=== PATIENT | female | born 1960 | race Caucasian/White ===

== ENCOUNTER 2016-05-23 11:16 | Emergency (ER) | payer MEDICAID ==
[~2016-05-23] VITALS: Ht 157.5 cm; Wt 50.0 kg
[~2016-05-23 11:16] MED LIST: AZIT250T PO; HYDR25TA11 PO; PRED20TA PO; SERT50TA PO; TRAZ150T68 PO; TRAZ50TA18 PO
[2016-05-23] MEDS ORDERED: SODIUM CHLORIDE 0.9% 1,000ML IVBOLUS ONE (12:00)
[2016-05-23 12:34] LABS: HEMOGLOBIN 15.4 g/dL (11.7-16.4)
[2016-05-23 12:46] LABS: BLOOD UREA NITROGEN 11 mg/dL (7-18)
[2016-05-23] MEDS ORDERED: POTASSIUM CHLORIDE 20 MEQ TAB.ER.PRT PO ONE (13:30)
[2016-05-23] MEDS ORDERED: POTASSIUM CHLORIDE 40 MEQ in SODIUM CHLORIDE 0.9% 500 ML IV ONE (13:30)
[2016-05-23] MEDS ORDERED: POTASSIUM CHLORIDE 20 MEQ TAB.ER.PRT ONE (13:47)
[2016-05-23 15:52] LABS: BLOOD UREA NITROGEN 11 mg/dL (7-18)
[2016-05-23 15:57] VITALS: BP 107/59
[2016-05-23] MEDS ORDERED: LORazepam 1MG TABLET PO ONE (16:30)
[2016-05-23] MEDS ORDERED: LORazepam 1MG TABLET ONE (16:33)
== END 2016-05-23 16:50 | disposition home or self-care (01) ==
LOC: ED 16:36
DX: F10.129 Alcohol abuse with intoxication, unspecified (principal); E16.2 Hypoglycemia, unspecified; E86.0 Dehydration; F41.1 Generalized anxiety disorder; I10 Essential (primary) hypertension; F32.9 Major depressive disorder, single episode, unspecified; F12.10 Cannabis abuse, uncomplicated; Y90.9 Presence of alcohol in blood, level not specified
CPT/HCPCS: 36415; 80048; 82040; 82962; 85025; 96361; 96365; 96366; 99285; J3480; J7030; J7040

== ENCOUNTER 2016-12-18 06:42 | Emergency (ER) | payer MEDICAID, OTHER ==
[~2016-12-18] VITALS: Ht 157.5 cm; Wt 50.8 kg
[~2016-12-18 06:42] MED LIST changes: +TRAZ150T62 PO; -TRAZ150T68 PO
[2016-12-18 06:44] VITALS: BP 118/34
[2016-12-18] MEDS ORDERED: KETOROLAC 30 MG/1 ML IM ONE (07:00)
[2016-12-18] MEDS ORDERED: METHOCARBAMOL 750 MG TABLET PO ONE (07:00)
[2016-12-18] MEDS ORDERED: ONDANSETRON ODT 4 MG PO ONE (07:00)
[2016-12-18] MEDS ORDERED: METHOCARBAMOL 750 MG TABLET ONE (07:08)
[2016-12-18] MEDS ORDERED: ONDANSETRON ODT 4 MG ONE (07:08)
[2016-12-18] MEDS ORDERED: KETOROLAC 30 MG/1 ML ONE (07:08)
== END 2016-12-18 07:47 | disposition home or self-care (01) ==
LOC: ED 07:30
DX: M54.16 Radiculopathy, lumbar region (principal); M54.12 Radiculopathy, cervical region
CPT/HCPCS: 72050; 72110; 96372; 99284; J1885; Q0162

== ENCOUNTER 2017-06-04 15:21 | Emergency (ER) | payer MEDICAID, OTHER ==
[~2017-06-04] VITALS: Ht 157.5 cm; Wt 51.5 kg
[2017-06-04 15:22] VITALS: BP 102/66
== END 2017-06-04 16:12 | disposition home or self-care (01) ==
LOC: ED 16:00
DX: K02.9 Dental caries, unspecified (principal); K08.89 Other specified disorders of teeth and supporting structures; F17.210 Nicotine dependence, cigarettes, uncomplicated; I10 Essential (primary) hypertension
CPT/HCPCS: 99283

== ENCOUNTER 2018-01-19 12:48 | Emergency (ER) | payer MEDICAID ==
[~2018-01-19] VITALS: Ht 157.5 cm; Wt 48.0 kg
[~2018-01-19 12:48] MED LIST changes: +TRAZ-136 PO; -TRAZ50TA18 PO
[2018-01-19 13:11] VITALS: BP 147/78
[2018-01-19 13:44] LABS: BASOPHILS # (AUTO) 0.09 x10^3/uL (0-0.1); BASOPHILS % (AUTO) 1 % (0-1); EOSINOPHILS # (AUTO) 0.09 x10^3/uL (0-0.4); EOSINOPHILS % (AUTO) 1 % (1-7); LYMPHOCYTES # (AUTO) 2.18 x10^3/uL (1-3.4); LYMPHOCYTES % (AUTO) 21 % (22-44); MD NO; MEAN CORPUSCULAR HEMOGLOBIN 31.4 pg (27.0-34.8); MEAN CORPUSCULAR HGB CONC 33.2 g/dL (32.4-35.8); MEAN CORPUSCULAR VOLUME 94.7 fL (80-100); MEAN PLATELET VOLUME 7.5 fL (7.4-10.4); MONOCYTES % (AUTO) 4 % (2-9); NEUTROPHILS # (AUTO) 7.59 x10^3/uL (1.8-6.8); NEUTROPHILS % (AUTO) 73 % (42-75); PLATELET COUNT 393 x10^3/uL (130-400); RED BLOOD COUNT 4.56 x10^6/uL (3.82-5.3); RED CELL DISTRIBUTION WIDTH 13.7 % (9.6-15.2)
[2018-01-19 13:57] LABS: ALANINE AMINOTRANSFERASE 27 U/L (12-78); ANION GAP 10 mmol/L (5-15); CALCIUM 8.5 mg/dL (8.5-10.1); CHLORIDE 102 mmol/L (98-107); SALICYLATE LEVEL 4.1 mg/dL (2.8-20.0)
[2018-01-19 13:59] LABS: CREATININE 0.95 mg/dL (0.55-1.02)
[2018-01-19 14:00] LABS: ALKALINE PHOSPHATASE 117 U/L (45-117); BILIRUBIN,TOTAL 0.7 mg/dL (0.2-1.0); TOTAL PROTEIN 7.6 g/dL (6.4-8.2)
[2018-01-19 14:01] LABS: ACETAMINOPHEN < 2 mcg/mL (10-30)
[2018-01-19 14:11] LABS: AMPHETAMINE SCREEN, URINE Positive (Negative); BARBITURATE SCREEN, URINE Negative (Negative); BENZODIAZEPINE SCREEN, URINE Negative (Negative); CANNABINOID SCREEN, URINE Positive (Negative); COCAINE SCREEN, URINE Negative (Negative); METHADONE SCREEN, URINE Negative (Negative); OPIATE SCREEN, URINE Negative (Negative)
== END 2018-01-19 15:36 | disposition left against medical advice (07) ==
LOC: ED 15:15
DX: F41.9 Anxiety disorder, unspecified (principal); F12.10 Cannabis abuse, uncomplicated
CPT/HCPCS: 36415; 80053; 80307; 80329; 85025; 93005; 99285; G0480

== ENCOUNTER 2018-01-23 15:06 | Observation (INO) | payer MEDICAID ==
[~2018-01-23] VITALS: Ht 157.5 cm; Wt 46.0 kg
[2018-01-23 15:36] LABS: BASOPHILS # (AUTO) 0.06 x10^3/uL (0-0.1); BASOPHILS % (AUTO) 1 % (0-1); EOSINOPHILS # (AUTO) 0.04 x10^3/uL (0-0.4); EOSINOPHILS % (AUTO) 0 % (1-7); LYMPHOCYTES % (AUTO) 14 % (22-44); MD NO; MEAN CORPUSCULAR HEMOGLOBIN 31.3 pg (27.0-34.8); MEAN CORPUSCULAR HGB CONC 33.2 g/dL (32.4-35.8); MEAN CORPUSCULAR VOLUME 94.3 fL (80-100); MEAN PLATELET VOLUME 7.9 fL (7.4-10.4); MONOCYTES # (AUTO) 0.38 x10^3/uL (0.2-0.8); MONOCYTES % (AUTO) 4 % (2-9); NEUTROPHILS # (AUTO) 7.96 x10^3/uL (1.8-6.8); NEUTROPHILS % (AUTO) 81 % (42-75); PLATELET COUNT 389 x10^3/uL (130-400); RED BLOOD COUNT 4.28 x10^6/uL (3.82-5.3); RED CELL DISTRIBUTION WIDTH 13.9 % (9.6-15.2)
[2018-01-23 15:46] LABS: ANION GAP 12 mmol/L (5-15); CALCIUM 8.6 mg/dL (8.5-10.1); CHLORIDE 102 mmol/L (98-107); CREATININE 0.97 mg/dL (0.55-1.02)
[2018-01-23] MEDS ORDERED: SODIUM CHLORIDE 0.9% 1,000ML IVBOLUS ONE (17:30)
[2018-01-23] MEDS ORDERED: DOCUSATE 100 MG CAPSULE PO PRN (19:00)
[2018-01-23] MEDS ORDERED: ONDANSETRON 2MG/ML, 2ML IVPush PRN (19:00)
[2018-01-23] MEDS ORDERED: hydrALAzine 20 MG/ML, 1ML IVPush PRN (19:00)
[2018-01-23] MEDS: D5%-0.9% NACL 1,000 ML IV SCH (19:41)
[2018-01-23] MEDS: POTASSIUM CHLORIDE 20 MEQ TAB.ER.PRT PO SCH (19:56)
[2018-01-23] MEDS: ENOXAPARIN 40 MG/0.4 ML SQ SCH (19:56)
[2018-01-23] MEDS: GABAPENTIN 300 MG CAPSULE PO PRN (19:56)
[2018-01-23] MEDS: GUAIFENESIN/COD200MG-20MG/10ML LIQUID PO PRN (19:56)
[2018-01-23 20:00] LABS: MICROSCOPIC INDICATED
[2018-01-23] MEDS: NICOTINE 7 MG/24 HR PATCH.TD24 TD SCH (20:01)
[2018-01-23 20:06] LABS: CULTURE INDICATED? YES
[2018-01-24] VITALS (7 sets, daily range): BP systolic 92–111; BP diastolic 57–73
[2018-01-24] MEDS: POTASSIUM CHLORIDE 20 MEQ TAB.ER.PRT PO SCH (00:04)
[2018-01-24] MEDS: D5%-0.9% NACL 1,000 ML IV SCH (03:33)
[2018-01-24 05:45] LABS: BASOPHILS # (AUTO) 0.05 x10^3/uL (0-0.1); BASOPHILS % (AUTO) 1 % (0-1); EOSINOPHILS # (AUTO) 0.19 x10^3/uL (0-0.4); EOSINOPHILS % (AUTO) 2 % (1-7); LYMPHOCYTES % (AUTO) 43 % (22-44); MD NO; MEAN CORPUSCULAR HEMOGLOBIN 31.1 pg (27.0-34.8); MEAN CORPUSCULAR HGB CONC 32.7 g/dL (32.4-35.8); MEAN CORPUSCULAR VOLUME 95.2 fL (80-100); MEAN PLATELET VOLUME 8.3 fL (7.4-10.4); MONOCYTES # (AUTO) 0.45 x10^3/uL (0.2-0.8); MONOCYTES % (AUTO) 5 % (2-9); NEUTROPHILS # (AUTO) 4.45 x10^3/uL (1.8-6.8); NEUTROPHILS % (AUTO) 50 % (42-75); PLATELET COUNT 366 x10^3/uL (130-400); RED BLOOD COUNT 3.83 x10^6/uL (3.82-5.3); RED CELL DISTRIBUTION WIDTH 13.8 % (9.6-15.2)
[2018-01-24 05:51] LABS: CHLORIDE 116 mmol/L (98-107)
[2018-01-24 05:55] LABS: ANION GAP 5 mmol/L (5-15); CREATININE 0.67 mg/dL (0.55-1.02)
[2018-01-24] MEDS ORDERED: MAGNESIUM SULFATE 1 GM in SODIUM CHLORIDE 0.9% 50 ML IV ONE (06:30)
[2018-01-24] MEDS: SERTRALINE 100MG TABLET PO SCH (08:14)
[2018-01-24] MEDS: GABAPENTIN 300 MG CAPSULE PO PRN ×2 (08:33→20:52)
[2018-01-24 17:36] LABS: AMPHETAMINE SCREEN, URINE Negative (Negative); BARBITURATE SCREEN, URINE Negative (Negative); BENZODIAZEPINE SCREEN, URINE Negative (Negative); CANNABINOID SCREEN, URINE Positive (Negative); COCAINE SCREEN, URINE Negative (Negative); METHADONE SCREEN, URINE Negative (Negative); OPIATE SCREEN, URINE Positive (Negative)
[2018-01-24] MEDS: NICOTINE 7 MG/24 HR PATCH.TD24 TD SCH (19:11)
[2018-01-24] MEDS: ENOXAPARIN 40 MG/0.4 ML SQ SCH (20:51)
[2018-01-24] MEDS: GUAIFENESIN/COD200MG-20MG/10ML LIQUID PO PRN (20:52)
[2018-01-25 00:13] VITALS: BP 118/73
[2018-01-25 04:45] LABS: ALBUMIN 3.3 g/dL (3.4-5.0); ANION GAP 3 mmol/L (5-15); CALCIUM 8.8 mg/dL (8.5-10.1); CHLORIDE 111 mmol/L (98-107); CREATININE 0.84 mg/dL (0.55-1.02)
[2018-01-25 07:21] VITALS: BP 96/64
[2018-01-25] MEDS: SERTRALINE 100MG TABLET PO SCH (09:19)
[2018-01-25 13:16] VITALS: BP 109/71
== END 2018-01-25 15:04 | disposition left against medical advice (07) ==
LOC: ED 16:28 → INTOOBSV 18:04 → EDIP 18:04 → 3NW 18:49
PROVIDERS: ADMIT Internal Medicine; ATTEND Internal Medicine
DX: I95.1 Orthostatic hypotension (principal); R42 Dizziness and giddiness; E87.6 Hypokalemia; I10 Essential (primary) hypertension; R53.81 Other malaise; F32.9 Major depressive disorder, single episode, unspecified; E44.0 Moderate protein-calorie malnutrition; E86.9 Volume depletion, unspecified; F10.10 Alcohol abuse, uncomplicated; F17.210 Nicotine dependence, cigarettes, uncomplicated; F19.10 Other psychoactive substance abuse, uncomplicated; F41.9 Anxiety disorder, unspecified; Z79.899 Other long term (current) drug therapy
CPT/HCPCS: 36415; 70450; 72050; 80048; 80307; 81001; 82040; 83735; 84100; 85025; 87086; 93005; 96361; 96365; 96372; 97116; 97161; 97166; 97530; 99285; G0378; J1650; J3475; J7030; J7042

== ENCOUNTER 2018-04-15 18:31 | Emergency (ER) | payer MEDICAID ==
[~2018-04-15] VITALS: Ht 157.5 cm; Wt 47.0 kg
[~2018-04-15 18:31] MED LIST changes: -TRAZ-136 PO; +TRAZ50TA66 PO
--- NOTE | 2018-04-15 19:07 | NUR ---
PT TO ED FOR PAINFUL URINATION. YVROSE MOONEY TO MONITORS. VSS. ASSESSMENT COMPLETE. AWAITNG URINE SAMPLE. PT STATES SHE WILL TRY SOON. NO OHTER NEEDS AT THIS TIME.
[2018-04-15 19:33] LABS: MICROSCOPIC NOT IND
[2018-04-15 19:35] LABS: CULTURE INDICATED? NO
[2018-04-15 19:45] VITALS: BP 101/55
--- NOTE | 2018-04-15 19:46 | NUR ---
LUPE WRAP APPLIED TO LEFT KNEE. EDUCATION PROVIDED TO PT ON LUPE WRAP. VSS. NO NEEDS AT THIS TIME. AWAITNG DISPO.
== END 2018-04-15 20:01 | disposition home or self-care (01) ==
LOC: ED 18:59
DX: S83.412A Sprain of medial collateral ligament of left knee, initial encounter (principal); I10 Essential (primary) hypertension; F17.200 Nicotine dependence, unspecified, uncomplicated; X58.XXXA Exposure to other specified factors, initial encounter; Y93.89 Activity, other specified; Y92.89 Other specified places as the place of occurrence of the external cause; Y99.8 Other external cause status
CPT/HCPCS: 81003; 93005; 99284

== ENCOUNTER 2018-09-14 16:27 | Emergency (ER) | payer MEDICAID ==
[~2018-09-14] VITALS: Ht 157.5 cm; Wt 50.9 kg
[2018-09-14 16:37] VITALS: BP 97/52
[2018-09-14] MEDS ORDERED: BUPIVACAINE 0.25% ONE (17:16)
--- NOTE | 2018-09-14 17:17 | NUR ---
[place] ordered from pharmacy
[2018-09-14] MEDS ORDERED: BUPIVACAINE 0.25% INFIL ONE (17:30)
[2018-09-14] MEDS ORDERED: TRIAMCINOLONE ACETONIDE 40 MG/ML, 1ML IM ONE (17:30)
--- NOTE | 2018-09-14 17:39 | NUR ---
at bedside for injection
== END 2018-09-14 17:57 | disposition home or self-care (01) ==
LOC: ED 17:50
DX: M70.42 Prepatellar bursitis, left knee (principal); F17.200 Nicotine dependence, unspecified, uncomplicated; I10 Essential (primary) hypertension
CPT/HCPCS: 99283

== ENCOUNTER 2018-10-02 15:31 | Emergency (ER) | payer MEDICAID ==
[~2018-10-02] VITALS: Ht 157.5 cm; Wt 50.8 kg
[2018-10-02 15:45] VITALS: BP 108/71
== END 2018-10-02 16:38 | disposition left against medical advice (07) ==
LOC: ED 16:32
DX: R56.9 Unspecified convulsions (principal); Z53.21 Procedure and treatment not carried out due to patient leaving prior to being seen by health care provider

== ENCOUNTER 2018-10-02 17:54 | Emergency (ER) | payer MEDICAID ==
[~2018-10-02] VITALS: Ht 157.5 cm; Wt 50.0 kg
[~2018-10-02 17:54] MED LIST changes: +HYDR-826 PO; -HYDR25TA11 PO
[2018-10-02 18:04] VITALS: BP 105/66
--- NOTE | 2018-10-02 18:41 | NUR ---
PT/ALL BELONGINGS GONE FROM ROOM.
[2018-11-20] MEDS ORDERED: HYDR50TA13 PO (12:53)
[2018-11-20] MEDS ORDERED: SERT100T PO (12:53)
== END 2018-10-02 18:48 | disposition left against medical advice (07) ==
LOC: ED 18:42
DX: F10.129 Alcohol abuse with intoxication, unspecified (principal); Z53.21 Procedure and treatment not carried out due to patient leaving prior to being seen by health care provider

== ENCOUNTER 2019-08-13 15:01 | Emergency (ER) | payer MEDICAID ==
[~2019-08-13] VITALS: Ht 157.5 cm; Wt 51.8 kg
[~2019-08-13 15:01] MED LIST changes: +HYDR50TA99 PO; +SERT100T PO
[2019-08-13] MEDS ORDERED: METHOCARBAMOL 750 MG TABLET PO ONE (15:30)
[2019-08-13] MEDS ORDERED: KETOROLAC 30 MG/1 ML IM ONE (15:30)
[2019-08-13] MEDS ORDERED: METHOCARBAMOL 750 MG TABLET ONE (15:47)
[2019-08-13] MEDS ORDERED: KETOROLAC 30 MG/1 ML ONE (15:47)
[2019-08-13 16:52] VITALS: BP 124/54
== END 2019-08-13 16:53 | disposition home or self-care (01) ==
LOC: ED 16:20
DX: M54.12 Radiculopathy, cervical region (principal); M54.6 Pain in thoracic spine; I10 Essential (primary) hypertension
CPT/HCPCS: 72125; 96372; 99284; J1885

== ENCOUNTER → 2020-01-28 | Outpatient (CLI) | payer MEDICAID ==
[~2020-01-28] MED LIST changes: +NAPR220C62 PO; +TRAZ-175 PO
[2020-01-28 12:08] LABS: BASOPHILS % (AUTO) 1 % (0-1); EOSINOPHILS % (AUTO) 6 % (1-7); LYMPHOCYTES % (AUTO) 41 % (22-44); MEAN CORPUSCULAR HEMOGLOBIN 32.1 pg (27.0-34.8); MEAN CORPUSCULAR HGB CONC 33.2 g/dL (32.4-35.8); MEAN PLATELET VOLUME 7.4 fL (7.4-10.4); MONOCYTES % (AUTO) 5 % (2-9); NEUTROPHILS % (AUTO) 48 % (42-75); PLATELET COUNT 338 x10^3/uL (130-400); RED BLOOD COUNT 4.17 x10^6/uL (3.82-5.3); RED CELL DISTRIBUTION WIDTH 12.5 % (9.6-15.2)
[2020-01-28 12:09] LABS: MD NO
[2020-01-28 12:10] LABS: MICROSCOPIC NOT IND
[2020-01-28 12:17] LABS: INTERNATIONAL NORMALIZED RATIO 1.01 (0.93-1.1); PROTHROMBIN TIME 10.7 Seconds (9.6-11.5)
[2020-01-28 12:19] LABS: ALBUMIN 4.6 g/dL (3.4-5.0); ANION GAP 3 mmol/L (5-15); CALCIUM 9.1 mg/dL (8.5-10.1); CHLORIDE 108 mmol/L (98-107)
[2020-01-28 12:23] LABS: ALANINE AMINOTRANSFERASE 44 U/L (12-78); ALKALINE PHOSPHATASE 84 U/L (45-117); BILIRUBIN,TOTAL 0.5 mg/dL (0.2-1.0); CREATININE 0.87 mg/dL (0.55-1.02); TOTAL PROTEIN 7.2 g/dL (6.4-8.2)
== END | disposition home or self-care (01) ==
LOC: STAR 10:44
PROVIDERS: ATTEND Neurological Surgery
DX: Z01.818 Encounter for other preprocedural examination (principal); M50.30 Other cervical disc degeneration, unspecified cervical region; I51.7 Cardiomegaly; M48.04 Spinal stenosis, thoracic region
CPT/HCPCS: 36415; 71046; 80053; 81003; 85025; 85610; 85730; 93005

== ENCOUNTER → 2020-02-04 | Outpatient (CLI) | payer MEDICAID ==
[~2020-02-04] MED LIST changes: +GADOTERATE 5 MMOL/10 ML VIAL ONE
== END | disposition home or self-care (01) ==
LOC: RAD 07:29
PROVIDERS: ATTEND Registered Nurse Registered Nurse First Assistant
DX: M51.34 Other intervertebral disc degeneration, thoracic region (principal); M48.03 Spinal stenosis, cervicothoracic region; M25.78 Osteophyte, vertebrae; M46.20 Osteomyelitis of vertebra, site unspecified
CPT/HCPCS: 72157; A9575

== ENCOUNTER → 2020-03-03 | Outpatient (CLI) | payer MEDICAID ==
[~2020-03-03] MED LIST changes: -GADOTERATE 5 MMOL/10 ML VIAL ONE
[2020-03-03 14:43] LABS: BASOPHILS % (AUTO) 0 % (0-1); EOSINOPHILS % (AUTO) 3 % (1-7); LYMPHOCYTES % (AUTO) 35 % (22-44); MEAN CORPUSCULAR HEMOGLOBIN 31.9 pg (27.0-34.8); MEAN CORPUSCULAR HGB CONC 33.8 g/dL (32.4-35.8); MEAN PLATELET VOLUME 6.8 fL (7.4-10.4); MONOCYTES % (AUTO) 7 % (2-9); NEUTROPHILS % (AUTO) 55 % (42-75); PLATELET COUNT 385 x10^3/uL (130-400); RED BLOOD COUNT 4.24 x10^6/uL (3.82-5.3); RED CELL DISTRIBUTION WIDTH 12.8 % (9.6-15.2)
[2020-03-03 14:46] LABS: MICROSCOPIC INDICATED
[2020-03-03 14:50] LABS: INTERNATIONAL NORMALIZED RATIO 1.01 (0.93-1.1); PROTHROMBIN TIME 10.7 Seconds (9.6-11.5)
[2020-03-03 14:52] LABS: MD NO
[2020-03-03 14:53] LABS: CHLORIDE 104 mmol/L (98-107)
[2020-03-03 15:00] LABS: ALANINE AMINOTRANSFERASE 46 U/L (12-78); ALBUMIN 4.5 g/dL (3.4-5.0); ALKALINE PHOSPHATASE 97 U/L (45-117); ANION GAP 5 mmol/L (5-15); BILIRUBIN,TOTAL 0.5 mg/dL (0.2-1.0); CALCIUM 9.8 mg/dL (8.5-10.1); CREATININE 0.88 mg/dL (0.55-1.02); TOTAL PROTEIN 7.7 g/dL (6.4-8.2)
== END | disposition home or self-care (01) ==
LOC: STAR 13:28
PROVIDERS: ATTEND Neurological Surgery
DX: Z01.812 Encounter for preprocedural laboratory examination (principal); Z20.828 Contact with and (suspected) exposure to other viral communicable diseases; M50.30 Other cervical disc degeneration, unspecified cervical region
CPT/HCPCS: 80053; 81001; 85025; 85610; 85730; 87086; 87635

== ENCOUNTER 2020-03-08 08:43 | Emergency (ER) | payer MEDICAID ==
[~2020-03-08] VITALS: Ht 157.5 cm; Wt 45.2 kg
[2020-03-08] MEDS ORDERED: LORazepam 1MG TABLET ONE (09:15)
--- NOTE | 2020-03-08 09:23 | NUR ---
BREAK RN. PT MEDICATED FOR PAIN PER ORDERS.
[2020-03-08] MEDS ORDERED: LORazepam 1MG TABLET PO ONE (09:30)
[2020-03-08 09:48] LABS: BASOPHILS % (AUTO) 1 % (0-1); EOSINOPHILS % (AUTO) 2 % (1-7); LYMPHOCYTES % (AUTO) 31 % (22-44); MEAN CORPUSCULAR HEMOGLOBIN 31.8 pg (27.0-34.8); MEAN CORPUSCULAR HGB CONC 33.8 g/dL (32.4-35.8); MEAN PLATELET VOLUME 7.2 fL (7.4-10.4); MONOCYTES % (AUTO) 6 % (2-9); NEUTROPHILS % (AUTO) 61 % (42-75); PLATELET COUNT 383 x10^3/uL (130-400); RED BLOOD COUNT 4.21 x10^6/uL (3.82-5.3); RED CELL DISTRIBUTION WIDTH 12.6 % (9.6-15.2)
[2020-03-08 09:51] LABS: MD NO
[2020-03-08 09:55] LABS: ALBUMIN 3.9 g/dL (3.4-5.0); ANION GAP 4 mmol/L (5-15); CALCIUM 9.1 mg/dL (8.5-10.1); CHLORIDE 107 mmol/L (98-107)
[2020-03-08 09:59] LABS: ALANINE AMINOTRANSFERASE 32 U/L (12-78); ALKALINE PHOSPHATASE 90 U/L (45-117); BILIRUBIN,TOTAL 0.4 mg/dL (0.2-1.0); CREATININE 0.79 mg/dL (0.55-1.02); TOTAL PROTEIN 6.9 g/dL (6.4-8.2)
[2020-03-08] MEDS ORDERED: SODIUM CHLORIDE 0.9% 1,000ML IVBOLUS ONE (10:30)
[2020-03-08 11:00] VITALS: BP 102/51
[2020-03-08] MEDS ORDERED: INSULIN REGULAR 100 UNITS/ML, 3ML VIAL SQ-INSULIN SCH (11:00)
[2020-03-08] MEDS ORDERED: INSULIN REGULAR 100 UNITS/ML, 3ML VIAL IVPush ONE (11:00)
== END 2020-03-08 11:24 | disposition home or self-care (01) ==
LOC: ED 09:24
DX: R42 Dizziness and giddiness (principal); F41.1 Generalized anxiety disorder; I10 Essential (primary) hypertension; Z90.49 Acquired absence of other specified parts of digestive tract; Z87.891 Personal history of nicotine dependence
CPT/HCPCS: 36415; 80053; 85025; 93005; 99284

== ENCOUNTER 2020-03-10 09:26 | Inpatient (IN) | payer MEDICAID ==
[~2020-03-10] VITALS: Ht 152.4 cm; Wt 45.0 kg
[~2020-03-10 09:26] MED LIST changes: +BACITRACIN 50,000 UNIT ONE; +BUPIVACAINE/PF 0.5% ONE; +EPINEPHRINE 1 MG/ML, 1ML ONE; +FENTANYL PF 250 MCG/5ML ONE; +MIDAZOLAM 1 MG/ML, 2ML ONE; +PROPOFOL 50 ML ONE
[2020-03-10] MEDS ORDERED: HYDROmorphone 1 MG/ML, 1ML INJ IVPush PRN ×2 (10:00→16:00)
[2020-03-10] MEDS ORDERED: CHLORHEXIDINE 15 ML UDC MM ONE (10:00)
[2020-03-10] MEDS ORDERED: ONDANSETRON 2MG/ML, 2ML IVPush PRN ×2 (10:00→16:00)
[2020-03-10] MEDS ORDERED: PROMETHAZINE 25 MG/ML, 1ML IVPush PRN (10:00)
[2020-03-10] MEDS ORDERED: DIPHENHYDRAMINE 50 MG/ML, 1ML IVPush PRN ×2 (10:00→16:00)
[2020-03-10] MEDS ORDERED: FENTANYL PF 100 MCG/2ML IV PRN (10:00)
[2020-03-10] MEDS ORDERED: MEPERIDINE/PF 25MG/0.5ML IVPush PRN (10:00)
[2020-03-10] MEDS ORDERED: OXYcodone 5 MG/5 ML ORAL.SOL UDC PO PRN (10:00)
[2020-03-10 10:14] VITALS: BP 108/66
[2020-03-10] MEDS ORDERED: SCOPOLAMINE 1MG PATCH TD SCH (10:30)
[2020-03-10] MEDS ORDERED: ACETAMINOPHEN 500 MG TABLET PO ONE (10:30)
[2020-03-10] MEDS ORDERED: OXYcodone IR 5MG TABLET PO ONE (10:30)
[2020-03-10] MEDS ORDERED: GABAPENTIN 300 MG CAPSULE PO ONE (10:30)
[2020-03-10] MEDS ORDERED: LACTATED RINGERS 1,000 ML IV SCH (10:30)
[2020-03-10] MEDS ORDERED: DEXAMETHASONE 4 MG/ML, 1ML ONE (13:03)
[2020-03-10] MEDS ORDERED: SUCCINYLCHOLINE 20 MG/ML, 10ML ONE (13:03)
[2020-03-10] MEDS ORDERED: ONDANSETRON 2MG/ML, 2ML ONE (13:03)
[2020-03-10] MEDS ORDERED: CEFAZOLIN 1,000 MG ONE (13:03)
[2020-03-10] MEDS ORDERED: PROPOFOL 10 MG/ML, 20ML ONE (13:03)
[2020-03-10] MEDS ORDERED: PROPOFOL 50 ML ONE ×2 (14:01→14:51)
[2020-03-10] MEDS ORDERED: PHARMACY MAY ADJ FOR RENAL FX MC PRN (16:00)
[2020-03-10] MEDS ORDERED: TIZANIDINE 4MG TABLET PO PRN (16:00)
[2020-03-10] MEDS ORDERED: MEPERIDINE/PF 100 MG/ML IM PRN (16:00)
[2020-03-10] MEDS ORDERED: MAGNESIUM HYDROXIDE 8%, 30ML UDC PO PRN (16:00)
[2020-03-10] MEDS ORDERED: PROMETHAZINE 25 MG/ML, 1ML IM PRN (16:00)
[2020-03-10] MEDS ORDERED: BISACODYL 10 MG SUPP PR PRN (16:00)
[2020-03-10] MEDS ORDERED: DIAZEPAM 5 MG TABLET PO PRN (16:00)
[2020-03-10] MEDS ORDERED: METHOCARBAMOL 1,000 MG in DEXTROSE 5% 100 ML IV ONE (16:00)
[2020-03-10] MEDS ORDERED: OXYcodone/APAP 5/325MG TABLET PO PRN (16:00)
[2020-03-10] MEDS ORDERED: FENTANYL PF 100 MCG/2ML ONE (16:19)
[2020-03-10] MEDS ORDERED: OXYcodone 5 MG/5 ML ORAL.SOL UDC ONE (16:56)
[2020-03-10 17:55] VITALS: BP 125/74
[2020-03-10] MEDS: NS + 20MEQ KCL 1,000 ML IV SCH (18:28)
[2020-03-10 19:17] VITALS: BP 133/73
[2020-03-10] MEDS ORDERED: LORazepam 2 MG/ML, 1ML ONE (19:37)
[2020-03-10] MEDS ORDERED: LORazepam 2 MG/ML, 1ML IVPush PRN (20:00)
[2020-03-10] MEDS: CEFAZOLIN PMX 1GM/50ML 50 ML IVPB SCH (21:27)
[2020-03-10] MEDS: SODIUM CHLORIDE FLUSH 10ML SYR IVF SCH (21:28)
[2020-03-10] MEDS: TRAZODONE 100MG TABLET PO SCH (21:28)
[2020-03-11] VITALS: BP 112/73
[2020-03-11] MEDS: HYDROcodone/APAP 10/325 MG TABLET PO PRN ×4 (01:02→20:44)
[2020-03-11 04:31] VITALS: BP 107/73
[2020-03-11] MEDS: CEFAZOLIN PMX 1GM/50ML 50 ML IVPB SCH (04:52)
[2020-03-11] MEDS: NS + 20MEQ KCL 1,000 ML IV SCH ×3 (04:52→22:51)
[2020-03-11 07:18] VITALS: BP 108/67
[2020-03-11] MEDS: SENNA/DOCUSATE TABLET PO SCH (08:33)
[2020-03-11] MEDS: SERTRALINE 100MG TABLET PO SCH (08:34)
[2020-03-11] MEDS: SODIUM CHLORIDE FLUSH 10ML SYR IVF SCH ×2 (08:34→20:51)
[2020-03-11 13:10] VITALS: BP 101/54
[2020-03-11] MEDS: TRAZODONE 100MG TABLET PO SCH (20:43)
[2020-03-11 20:47] VITALS: BP 98/62
[2020-03-12 02:02] VITALS: BP 114/70
[2020-03-12] MEDS: HYDROcodone/APAP 10/325 MG TABLET PO PRN ×2 (03:50→08:48)
[2020-03-12 08:18] VITALS: BP 105/56
[2020-03-12] MEDS: SERTRALINE 100MG TABLET PO SCH (08:49)
[2020-03-12] MEDS: SENNA/DOCUSATE TABLET PO SCH (08:49)
[2020-03-12] MEDS: SODIUM CHLORIDE FLUSH 10ML SYR IVF SCH (08:52)
[2020-03-12] MEDS: NS + 20MEQ KCL 1,000 ML IV SCH (08:56)
== END 2020-03-12 12:25 | disposition home or self-care (01) | DRG 473 ==
LOC: ORIP 09:26 → EDSTATUS 13:30 → 4NE 17:47
PROVIDERS: ADMIT Neurological Surgery; ATTEND Neurological Surgery
PROC: 0RG2070 Fusion of 2 or more Cervical Vertebral Joints with Autologous Tissue Substitute, Anterior Approach, Anterior Column, Open Approach (ICD-10-PCS; 2020-03-10)
PROC: 0RB30ZZ Excision of Cervical Vertebral Disc, Open Approach (ICD-10-PCS; 2020-03-10)
PROC: 0RG20A0 Fusion of 2 or more Cervical Vertebral Joints with Interbody Fusion Device, Anterior Approach, Anterior Column, Open Approach (ICD-10-PCS; principal; 2020-03-10 12:00)
DX: M47.22 Other spondylosis with radiculopathy, cervical region (principal); M50.11 Cervical disc disorder with radiculopathy, high cervical region; F17.200 Nicotine dependence, unspecified, uncomplicated; F12.10 Cannabis abuse, uncomplicated; Z20.822 Contact with and (suspected) exposure to COVID-19; Z72.89 Other problems related to lifestyle
CPT/HCPCS: 72040; S0020; 87635; 95938; 95941; C1713; G0378; J0171; J0690; J1100; J2250; J2405; J2704; J3010; J3480; C1889; J0330; J2060; J2800; J7120; Q0177

== ENCOUNTER → 2020-04-21 | Outpatient (CLI) | payer MEDICAID ==
[~2020-04-21] MED LIST changes: -BACITRACIN 50,000 UNIT ONE; -BUPIVACAINE/PF 0.5% ONE; -EPINEPHRINE 1 MG/ML, 1ML ONE; -FENTANYL PF 250 MCG/5ML ONE; -MIDAZOLAM 1 MG/ML, 2ML ONE; -PROPOFOL 50 ML ONE
== END | disposition home or self-care (01) ==
LOC: RAD 12:52
PROVIDERS: ATTEND Nurse Practitioner Family
DX: M54.2 Cervicalgia (principal); Z98.1 Arthrodesis status
CPT/HCPCS: 72040

== ENCOUNTER 2020-05-22 20:14 | Emergency (ER) | payer MEDICAID ==
[~2020-05-22] VITALS: Ht 154.9 cm; Wt 44.9 kg
[2020-05-22] MEDS ORDERED: METHOCARBAMOL 750 MG TABLET ONE (20:57)
[2020-05-22] MEDS ORDERED: METHOCARBAMOL 750 MG TABLET PO ONE (21:00)
--- NOTE | 2020-05-22 21:56 | NUR ---
REPORT RECIEVED FROM [facility]
--- NOTE | 2020-05-22 21:56 | NUR ---
PATIENT STATED THAT SHE HAS RELIEF FROM PAIN WITH ROBAXIN
[2020-05-22 22:45] VITALS: BP 121/70
== END 2020-05-22 22:46 | disposition home or self-care (01) ==
LOC: ED 20:56
DX: S16.1XXA Strain of muscle, fascia and tendon at neck level, initial encounter (principal); S29.012A Strain of muscle and tendon of back wall of thorax, initial encounter; M85.88 Other specified disorders of bone density and structure, other site; I10 Essential (primary) hypertension; V49.49XA Driver injured in collision with other motor vehicles in traffic accident, initial encounter; Y93.89 Activity, other specified; Y92.89 Other specified places as the place of occurrence of the external cause; Y99.8 Other external cause status
CPT/HCPCS: 72072; 72125; 99284

== ENCOUNTER 2020-07-03 15:34 | Outpatient (CLI) | payer MEDICAID | END 2020-07-03 23:59 | disposition home or self-care (01) | LOC: RAD 15:34 | PROVIDERS: ATTEND Registered Nurse Registered Nurse First Assistant | DX: M47.12 Other spondylosis with myelopathy, cervical region (principal) | CPT/HCPCS: 72040 ==